=== PATIENT | male | born 1970 | race Caucasian/White ===

== ENCOUNTER 2018-05-16 17:13 | Emergency (ER) | payer BC, SELFPAY ==
[2018-05-16 17:19] VITALS: BP 159/97; PULSE 86; RESP 18; TEMP 36.4; O2SAT 97
--- NOTE | 2018-05-16 17:45 | W.ED.GENAD ---
Discharge Plan Disposition Patient Disposition: HOME Condition: Fair Discharge Details Chief Complaint: Laceration Clinical Impression: Crush injury to finger, Laceration of finger Primary Care Provider: New Lin ED Provider: Sfoiya Carrington Home Meds and New Rx's Prescriptions: New cephalexin [Keflex] 500 mg capsule 500 mg PO BID Qty: 10 RF: 0 Continue sertraline 25 MG tablet 25 mg PO DAILY Qty: 30 RF: 3 zolpidem 10 MG tablet 10 mg PO HS PRN PRN5 Days Qty: 5 RF: 0 Discharge Instructions Instructions: Finger Laceration (ED) Additional Instructions: I am concerned that you have have an open fracture that would need to be managed by orthopedics and has a risk of infection. You are currently refusing x-ray of the finger. Will place you on antibiotics prophylactically in the event you have a fracture that is unknown. Encourage rest, ice, elevation. Tylenol and/or Ibuprofen as needed for discomfort. Keep wound clean/dry/covered. Keep splint on while pain persists. You should follow up [facility] primary care for xray as was advised today. Tetanus was updated today. Referrals: New Lin, [Primary Care Provider] - Discharge Data Discharge Date/Time-TO BE ENTERED AT DEPARTURE: 05/16/18 18:30 Medical Decision Making Patient is a 47 year old male with c/c of left small digit crush injury. Was working to unhitch a load that was underpressure on a tractor when a pipe kicked back and struck his finger. He has a laceration over the DIP joint, appears superficial and irregularly shaped with a central flap. this is fairly well adhered down, will soak this to be abl eto better evaluate. He need tetanus, will update this today. I am concerned for possible fx given mechanism and discomfort with flexion. Will obtain xr. Patient has sensation intact, good extension against resistence. He cleansed the wound prior to arrival. Patient refused XR, initially was in agreement but feels that this is unnecessary as it is broken. I advised that in order to best treat him he would need imaging but he refuses. Also discussed that, as there is no indication for deformity at this time, I was not sure that there was indeed a fracture. We discussed that if there was infact an open fracture he would need abx and that placing him on these without appropriate indication could put him at risk of side effects or adverse reaction unnecessarily. He continues to decline and prefers to treat as if broken. When I was going to evaluate the wound further, saira had removed the remaining flap of tissue. My plan had been to mobilize this to be able to further evaluate the wound, cleanse the wound and then replace as biologic dressing. There is one area of deeper penetration just proximal to the DIP joint. This is 3mm in length, surrounding tissue is avulsed. Does not appear to require closure. Nursing staff will cleanse the wound and place a nonadhesive dressing. As we are unable to arrange for follow up as patient is refusing further care, I have asked the patient to sign out AMA. I will treat with abx prophylactically as I remain concerned for this possibly being an open fracture. Patient and I discussed this at length. He will keep current bulky dressing on for the next 48 hours. Patient was discharge d with a foam and metal splint which he will apply after removal of current dressing. He was given strict return precautions, in particular, we discussed sxs of infection. I advised he may return at any time to have imaging completed. Advised prompt f/u with PCP. Tetanus was updated today. All of his questions and concerns were addressed. Patient left AMA. HPI General Mode of arrival: ambulatory. Date/Time Provider Initiated Documentation: 05/16/18 17:38. Limitations to Documentation: no limitations. Information obtained by: patient. History of Present Illness 47 year old M presents to the emergency department with the chief complaint of left small finger crush injury, described as moderate, Quality is described as aching, and is localized to the left and upper extremity. Patient reports no radiation. Patient started experiencing this hour(s) and it has been constant. Immobilization improves symptom(s), Movement worsens symptoms . Patient notes no other symptoms.. Patient did receive the following treatments prior to arrival, none Related Data Home Medications Medication Instructions Recorded Confirmed sertraline 25 mg PO DAILY #30 tab-cap 10/11/17 zolpidem 10 mg PO HS PRN PRN 5 Days #5 tab 10/11/17 cephalexin [Keflex] 500 mg PO BID #10 cap 05/16/18 Previous Rx's Medication Instructions Recorded sertraline 25 mg PO DAILY #30 tab-cap 10/11/17 cephalexin [Keflex] 500 mg PO BID #10 cap 05/16/18 Allergies Allergy/AdvReac Type Severity Reaction Status Date / Time No Known Allergies Allergy Unverified 05/16/18 17:21 General Stated Complaint: Laceration SAUL: 4 Review of Systems Constitutional Reports as per HPI and Denies headache(s) ENT Denies headache(s) Cardiovascular Reports as per HPI Respiratory Reports as per HPI and Denies cough Musculoskeletal Reports as per HPI, Denies numbness and Denies tingling Integumentary/Breasts Reports as per HPI and Reports wounds Neurologic Reports as per HPI, Denies headache(s), Denies numbness and Denies tingling [facility] Social History Smoking/Tobacco Use Status: Never Surgical History Appendectomy (~05/1996) Exam Const General: cooperative, healthy appearing, comfortable, no acute distress, well developed and well groomed Nutritional Appearance: average body habitus and well nourished Orientation: alert and awake Resp Effort & Inspection: normal respiratory effort, able to speak in complete sentences and no respiratory distress Cardio Rate: regular rate Rhythm: regular rhythm Skin Trauma: abrasion (patient has a skin tear to the dorsal aspect of the 5th digit right hand. Appears to have a central flap with skin still attached to the radial side of the digit 2cmx0.5cm in size. No active bleeding) Neuro General: alert and awake Cognition: normal cognition Speech: speech normal Gait: normal gait Motor: muscle tone normal throughout Sensory Exam: no sensory deficits noted (2 point intact) Extrem General: abnormal to inspection (abrasion as above), abnormal ROM (full extension, able to extend and flex against resistance at the DIP and PIP joint. Patient unable to completely flex, this may be associated with swelling), normal capillary refill and no joint enlargement noted (swelling of the middle phalanx) Psych Appearance: grossly normal and well kempt Mental Status: mental status grossly normal Speech and Movement: speech and movement normal Course Vital Signs Temperature 36.4 C L 05/16/18 17:19 Pulse 86 05/16/18 17:19 Respiratory Rate 18 05/16/18 17:19 Blood Pressure 159/97 H 05/16/18 17:19 Pulse Oximetry 97 05/16/18 17:19 Temperature 36.4 C L 05/16/18 17:19 Temperature Source Skin 05/16/18 17:19 Pulse 86 05/16/18 17:19 Respiratory Rate 18 05/16/18 17:19 Respiratory Effort 05/16/18 17:21 Blood Pressure 159/97 H 05/16/18 17:19 Blood Pressure Position Sitting 05/16/18 17:19 Pulse Oximetry 97 05/16/18 17:19 Oxygen Delivery Method Room Air 05/16/18 17:19 Oxygen Flow Rate 0 05/16/18 17:19
--- NOTE | 2018-05-16 17:49 | ED.GENADUL_ITS ---
Discharge Plan Disposition Patient Disposition: HOME Condition: Fair Discharge Details Chief Complaint: Laceration Clinical Impression: Crush injury to finger, Laceration of finger Primary Care Provider: New Lin ED Provider: Sofiya Carrington Home Meds and New Rx's Prescriptions: New cephalexin [Keflex] 500 mg capsule 500 mg PO BID Qty: 10 RF: 0 Continue sertraline 25 MG tablet 25 mg PO DAILY Qty: 30 RF: 3 zolpidem 10 MG tablet 10 mg PO HS PRN PRN5 Days Qty: 5 RF: 0 Discharge Instructions Instructions: Finger Laceration (ED) Additional Instructions: I am concerned that you have have an open fracture that would need to be managed by orthopedics and has a risk of infection. You are currently refusing x-ray of the finger. Will place you on antibiotics prophylactically in the event you have a fracture that is unknown. Encourage rest, ice, elevation. Tylenol and/or Ibuprofen as needed for discomfort. Keep wound clean/dry/ covered. Keep splint on while pain persists. You should follow up [facility] primary care for xray as was advised today. Tetanus was updated today. Referrals: New Lin, [Primary Care Provider] - Discharge Data Discharge Date/Time-TO BE ENTERED AT DEPARTURE: 05/16/18 18:30 Medical Decision Making Patient is a 47 year old male with c/c of left small digit crush injury. Was working to unhitch a load that was underpressure on a tractor when a pipe kicked back and struck his finger. He has a laceration over the DIP joint, appears superficial and irregularly shaped with a central flap. this is fairly well adhered down, will soak this to be abl eto better evaluate. He need tetanus , will update this today. I am concerned for possible fx given mechanism and discomfort with flexion. Will obtain xr. Patient has sensation intact, good extension against resistence. He cleansed the wound prior to arrival. Patient refused XR, initially was in agreement but feels that this is unnecessary as it is broken. I advised that in order to best treat him he would need imaging but he refuses. Also discussed that, as there is no indication for deformity at this time, I was not sure that there was indeed a fracture. We discussed that if there was infact an open fracture he would need abx and that placing him on these without appropriate indication could put him at risk of side effects or adverse reaction unnecessarily. He continues to decline and prefers to treat as if broken. When I was going to evaluate the wound further, saira had removed the remaining flap of tissue. My plan had been to mobilize this to be able to further evaluate the wound, cleanse the wound and then replace as biologic dressing. There is one area of deeper penetration just proximal to the DIP joint. This is 3mm in length, surrounding tissue is avulsed. Does not appear to require closure. Nursing staff will cleanse the wound and place a nonadhesive dressing. As we are unable to arrange for follow up as patient is refusing further care, I have asked the patient to sign out AMA. I will treat with abx prophylactically as I remain concerned for this possibly being an open fracture. Patient and I discussed this at length. He will keep current bulky dressing on for the next 48 hours. Patient was discharge d with a foam and metal splint which he will apply after removal of current dressing. He was given strict return precautions, in particular, we discussed sxs of infection. I advised he may return at any time to have imaging completed. Advised prompt f/u with PCP. Tetanus was updated today. All of his questions and concerns were addressed. Patient left AMA. HPI General Mode of arrival: ambulatory . Date/Time Provider Initiated Documentation: 05/16/18 17:38 . Limitations to Documentation: no limitations . Information obtained by: patient . History of Present Illness 47 year old M presents to the emergency department with the chief complaint of left small finger crush injury, described as moderate, Quality is described as aching, and is localized to the left and upper extremity. Patient reports no radiation. Patient started experiencing this hour(s) and it has been constant. Immobilization improves symptom(s), Movement worsens symptoms . Patient notes no other symptoms.. Patient did receive the following treatments prior to arrival, none Related Data Home Medications Medication Instructions Recorded Confirmed sertraline 25 mg PO DAILY #30 tab-cap 10/11/17 zolpidem 10 mg PO HS PRN PRN 5 Days #5 tab 10/11/17 cephalexin [Keflex] 500 mg PO BID #10 cap 05/16/18 Previous Rx's Medication Instructions Recorded sertraline 25 mg PO DAILY #30 tab-cap 10/11/17 cephalexin [Keflex] 500 mg PO BID #10 cap 05/16/18 Allergies Allergy/AdvReac Type Severity Reaction Status Date / Time No Known Allergies Allergy Unverified 05/16/18 17:21 General Stated Complaint: Laceration SAUL: 4 Review of Systems Constitutional Reports as per HPI and Denies headache(s) ENT Denies headache(s) Cardiovascular Reports as per HPI Respiratory Reports as per HPI and Denies cough Musculoskeletal Reports as per HPI, Denies numbness and Denies tingling Integumentary/Breasts Reports as per HPI and Reports wounds Neurologic Reports as per HPI, Denies headache(s), Denies numbness and Denies tingling [facility] Social History Smoking/Tobacco Use Status: Never Surgical History Appendectomy (~05/1996) Exam Const General: cooperative, healthy appearing, comfortable, no acute distress, well developed and well groomed Nutritional Appearance: average body habitus and well nourished Orientation: alert and awake Resp Effort & Inspection: normal respiratory effort, able to speak in complete sentences and no respiratory distress Cardio Rate: regular rate Rhythm: regular rhythm Skin Trauma: abrasion (patient has a skin tear to the dorsal aspect of the 5th digit right hand. Appears to have a central flap with skin still attached to the radial side of the digit 2cmx0.5cm in size. No active bleeding) Neuro General: alert and awake Cognition: normal cognition Speech: speech normal Gait: normal gait Motor: muscle tone normal throughout Sensory Exam: no sensory deficits noted (2 point intact) Extrem General: abnormal to inspection (abrasion as above), abnormal ROM (full extension, able to extend and flex against resistance at the DIP and PIP joint. Patient unable to completely flex, this may be associated with swelling), normal capillary refill and no joint enlargement noted (swelling of the middle phalanx) Psych Appearance: grossly normal and well kempt Mental Status: mental status grossly normal Speech and Movement: speech and movement normal Course Vital Signs Temperature 36.4 C L 05/16/18 17:19 Pulse 86 05/16/18 17:19 Respiratory Rate 18 05/16/18 17:19 Blood Pressure 159/97 H 05/16/18 17:19 Pulse Oximetry 97 05/16/18 17:19 Temperature 36.4 C L 05/16/18 17:19 Temperature Source Skin 05/16/18 17:19 Pulse 86 05/16/18 17:19 Respiratory Rate 18 05/16/18 17:19 Respiratory Effort 05/16/18 17:21 Blood Pressure 159/97 H 05/16/18 17:19 Blood Pressure Position Sitting 05/16/18 17:19 Pulse Oximetry 97 05/16/18 17:19 Oxygen Delivery Method Room Air 05/16/18 17:19 Oxygen Flow Rate 0 05/16/18 17:19
[2018-05-16 18:30] VITALS: BP 159/97; PULSE 86; RESP 18; TEMP 36.4; O2SAT 97
== END 2018-05-16 18:30 | disposition home or self-care (01) ==
PROVIDERS: Emergency Provider Physician Assistant; PCP Emergency Medicine
DX: S67.197A Crushing injury of left little finger, initial encounter (principal); S61.217A Laceration without foreign body of left little finger without damage to nail, initial encounter; W29.8XXA Contact with other powered hand tools and household machinery, initial encounter; Z53.29 Procedure and treatment not carried out because of patient's decision for other reasons
CPT/HCPCS: 90471; 99284; 99282

== ENCOUNTER 2021-05-14 13:17 | Outpatient (REF) | payer SELFPAY ==
[2021-05-14 18:50] LABS: Abs Immature Grans 0.01 10^3/uL (0.0-0.06); Absolute Basophil Count 0.06 10^3/uL (0.0-0.2); Absolute Eosinophil Count 0.36 10^3/uL (0.0-0.7); Absolute Lymphocyte Count 1.34 10^3/uL (1.2-3.4); Absolute Monocyte Count 0.65 10^3/uL (0.1-0.8); Absolute Neutrophil Count 2.29 10^3/uL (1.2-6.7); Basophils % 1.3; Eosinophils % 7.6; HCT 43.9 % (40.0-50.0); HGB 15.3 g/dL (13.5-17.5); Immature Grans % 0.2; Lymphocytes % 28.5; MCH 34.5 pg (27.0-33.0); MCHC 34.9 % (32.0-36.0); MCV 98.9 fL (80-95); MPV 10.5 fL (8.0-11.0); Monocytes % 13.8; Neutrophils % 48.6; Nucleated RBC 0 %; Platelet Count 200 10^3/uL (130-400); RBC 4.44 10^6/uL (4.36-5.78); RDW 12.6 % (11.8-14.1); RDW-SD 45.7 fL; WBC 4.71 10^3/uL (4.4-10.8)
[2021-05-14 18:56] LABS: ESR 7 mm/hr (0-15)
[2021-05-14 19:27] LABS: ALT 113 U/L (16-63); AST 65 U/L (15-37); Albumin 4.4 g/dL (3.4-5.0); Alkaline Phosphatase 75 U/L (46-116); Anion Gap 10.7 mmol/L (3-11); BUN 16 mg/dL (7-18); Bilirubin, Total 0.8 mg/dL (0.2-1.0); CO2 26.3 mmol/L (21.0-32.0); CREATININE 1.2 mg/dL (0.70-1.30); Calcium 8.9 mg/dL (8.5-10.1); Chloride 108 mmol/L (98-107); Glucose 92 mg/dL (74-106); Lipase 104 U/L (73-393); Potassium 4.2 mmol/L (3.5-5.1); Sodium 145 mmol/L (136-145); Total Protein 7.3 g/dL (6.4-8.2)
== END 2021-05-14 13:18 | disposition home or self-care (01) ==
LOC: LBN 13:17
PROVIDERS: PCP Emergency Medicine; Visit Provider Family Medicine
DX: I10 Essential (primary) hypertension (principal); R10.84 Generalized abdominal pain; K21.9 Gastro-esophageal reflux disease without esophagitis; Z13.6 Encounter for screening for cardiovascular disorders; Z11.59 Encounter for screening for other viral diseases
CPT/HCPCS: 80053; 83690; 85652; 85025; 86140

== ENCOUNTER 2021-09-01 12:07 | Outpatient (REF) | payer BC, SELFPAY ==
[2021-09-01 12:17] LABS: Abs Immature Grans 0.02 10^3/uL (0.0-0.06); Absolute Basophil Count 0.05 10^3/uL (0.0-0.2); Absolute Eosinophil Count 0.46 10^3/uL (0.0-0.7); Absolute Monocyte Count 0.51 10^3/uL (0.1-0.8); Absolute Neutrophil Count 2.21 10^3/uL (1.2-6.7); Basophils % 1.1; Eosinophils % 10.1; HCT 44.4 % (40.0-50.0); HGB 15.6 g/dL (13.5-17.5); Immature Grans % 0.4; Lymphocytes % 28.6; MCH 34.2 pg (27.0-33.0); MCHC 35.1 % (32.0-36.0); MCV 97.4 fL (80-95); MPV 9.9 fL (8.0-11.0); Monocytes % 11.2; Neutrophils % 48.6; Nucleated RBC 0 %; Platelet Count 195 10^3/uL (130-400); RBC 4.56 10^6/uL (4.36-5.78); RDW 12.5 % (11.8-14.1); RDW-SD 44.8 fL; WBC 4.55 10^3/uL (4.4-10.8)
[2021-09-01 12:39] LABS: ALT 122 U/L (16-63); AST 40 U/L (15-37); Albumin 4.2 g/dL (3.4-5.0); Alkaline Phosphatase 73 U/L (46-116); Anion Gap 11.8 mmol/L (3-11); BUN 17 mg/dL (7-18); Bilirubin, Total 0.7 mg/dL (0.2-1.0); CO2 25.2 mmol/L (21.0-32.0); Calcium 11.4 mg/dL (8.5-10.1); Chloride 103 mmol/L (98-107); GGT 87 U/L (15-85); Glucose 115 mg/dL (74-106); Potassium 3.9 mmol/L (3.5-5.1); Sodium 140 mmol/L (136-145); Total Protein 7.7 g/dL (6.4-8.2)
[2021-09-01 12:50] LABS: Calculated LDL 179 mg/dL (<100); Cholesterol 284 mg/dL (<200); HDL Cholesterol 80 mg/dL (40-60); Triglyceride 129 mg/dL (<150)
[2021-09-01 21:51] LABS: CRP, High Sensitivity 2.11 mg/L (See Note)
== END 2021-09-01 12:08 | disposition home or self-care (01) ==
LOC: LBN 12:07
PROVIDERS: PCP Family Medicine; Visit Provider Surgery
DX: K21.9 Gastro-esophageal reflux disease without esophagitis (principal); K57.30 Diverticulosis of large intestine without perforation or abscess without bleeding; K76.0 Fatty (change of) liver, not elsewhere classified; K80.20 Calculus of gallbladder without cholecystitis without obstruction; R10.9 Unspecified abdominal pain; Z80.0 Family history of malignant neoplasm of digestive organs; Z87.898 Personal history of other specified conditions; Z82.49 Family history of ischemic heart disease and other diseases of the circulatory system
CPT/HCPCS: 80053; 80061; 86141; 82977; 85025

== ENCOUNTER 2021-09-08 01:15 | Outpatient (CLI) | payer BC, SELFPAY ==
[2021-09-08 12:24] LABS: Source Nasal/Nares
[2021-09-08 18:06] LABS: COVID-19 PCR Negative (Negative)
== END 2021-09-08 01:16 | disposition home or self-care (01) ==
LOC: LBO 01:15
PROVIDERS: PCP Family Medicine; Visit Provider Surgery
DX: Z20.822 Contact with and (suspected) exposure to COVID-19 (principal); Z01.818 Encounter for other preprocedural examination
CPT/HCPCS: 87635

== ENCOUNTER 2021-09-09 10:50 | Day surgery (SDC) | payer BC, SELFPAY ==
--- NOTE | 2021-09-08 20:07 | W.PM.DSUDISC ---
Discharge Plan Disposition Patient Disposition: HOME Condition: Good Discharge Details Reason For Visit: GB removal Attending Provider: Sandy Hernandez Primary Care Provider: Braxton Platt Home Meds and New Rx's Prescriptions: New tramadol [Ultram] 50 mg tablet 50 mg PO Q6H PRNQty: 7 0RF ondansetron 4 mg tablet,disintegrating 4 mg PO Q6H PRN (Reason: nausea and vomiting) Qty: 4 0RF Continued omeprazole 20 mg capsule,delayed release(DR/EC) 20 mg PO DAILY Qty: 30 0RF Discharge Instructions Additional Instructions: Care after Gallbladder Surgery ? ? -Pain control: ?For the first 72 hours after surgery, take you pain meds continuously and not just when you have pain.?? Alternate Tylenol 1000mg by mouth every 8 hours, and Ibuprofen 600mg every 6 hours.? Make sure you take ibuprofen with food and not on an empty stomach.? ??Use the tramadol for breakthrough pain- pain that is greater than a 7. ?- Use ICE! Ice really helps to keep the swelling down, and swelling causes pain. ??Twenty minutes on, and then off, continuously for the first 72hours.? After the first 72hrs, you can just use the Tylenol, ibuprofen or Celebrex, and ice, ?when you have pain.?? If you are taking narcotic pain medication, follow the instructions on the label and do not drive. Pain medications can make you very constipated. Make sure you are moving your bowels daily. If not, take Miralax, milk of magnesia or magnesium citrate.? - Anesthesia makes you very constipated.? Take a dose of milk of magnesia the morning after surgery. ? Use an ice bag for the first 72 hours. This helps to decrease swelling, which causes pain. It is normal to be more sore/painful and swollen towards the end of the day and first thing in the morning. ? ? Gallbladder surgery can make you very nauseated; use Zofran for nausea, for the first 24 hours. The nausea generally stops after 24 hours. ? ? Use milk of magnesia or prune juice to prevent constipation (this is a particular side effect of pain medication and anesthesia). Do not allow yourself to become constipated. ? ? Avoid fatty or greasy foods; introduce these slowly, with care, after about 1 month. ? High-fat foods include: ? Foods that are fried, like [place]zbek fries and potato chips ? High-fat meats, such as mustafa, bologna, sausage, ground beef, and ribs, pork products ? High-fat dairy products, such as cheese, ice cream, cream, whole milk, and sour cream ? Pizza ? Foods made with lard or butter ? Creamy soups or sauces ? Meat gravies ? Chocolate ? Oils, such as palm and coconut oil ? Skin of chicken or turkey ? Nuts and nut butters ? Avacadoes ? Start out eating very small, bland amounts of food. Do not take pain pills on an empty stomach. ? - You will notice purple discoloration around the incisions.? This is the ?skin glue?.? This will wear off on its own.? It is OK to shower after 24hrs.? You do not need to cover the incisions. ? ?? - -You should walk frequently, gradually, increasing the distance. You may climb stairs, just go slowly. ? ? ? Do not go swimming or sit in a hot tub for two weeks. ? There are no stitches to remove. ? ? Do not drive your car x72hrs and then only if you have no pain and can move freely. Do not drive if you are taking pain narcotic pain medications. ? ? You may resume sexual activity whenever pain and soreness subside, usually in 2 weeks. ? ? Do no lift anything over 5 lbs. for two weeks. ? ? You may return to work in one week, or when you feel able, provided you do not have to do any heavy lifting or prolonged standing. ? ? You should return to Dr. Hernandez?s office for a post-op appointment September 25. [facility] Surgical Clinic: [phone]. ? My Medications for pain and nausea are: ibuprofen/tylenol ?and ultram, ?and zofran ? ? When to Call the Office: ? If the incision becomes red or swollen, or there is more than a little drainage from it. ? If you develop a temperature higher than 100.5 F. ? If your eyes turn yellow ? Vomiting and can?t keep fluids down ? Activity:: see above Remove Dressings/Wound Care:: 24 hours Diet:: low fat Discharge Orders Discharge Orders: Discharge Order (Routine); Ordered 09/08/21 Ordered By: Sandy Hernandez
--- NOTE | 2021-09-08 20:10 | ROE_ITS ---
Date of service: 09/09/21 Time of Service: 13:08 Operative Note Operative Note DATE OF PROCEDURE: 09/09/21 PRE-OP DIAGNOSIS: gallstones POST-OP DIAGNOSIS: other (umbilical hernia reapir) PROCEDURE: lap grey and incidental umbilical hernia repair SURGEON: David Lucio BENCH WORKER HOLLOW HANDLE: Regine Balderas ANESTHESIA TYPE: Local By Surgeon and General LMA/ETT Refer to Anesthesia Record ESTIMATED BLOOD LOSS: 5 PATHOLOGY: none sent COMPLICATIONS: None Patient was transported to: PACU Patient's condition: stable Procedure Description: The pt is seen at the request of there PCP regarding acute on chronic cholecystitis, cholelithiasis. The pt has failed outpt conservative medical measures and is here today for laparoscopic cholecystectomy. Informed consent was obtained, explaining risks and benefits of the procedure including but not limited to bleeding, infection, pneumonia, blood clots, possible damage to bowel, bladder, blood vessels, bile ducts, possible open procedure, complications of general anesthesia and other unforetold complications. PROCEDURE: The patient agrees and is brought to the operative room suite and placed in supine position. Anesthesia was administered per the Department of Anesthesia. The patient did receive IV antibiotics. NG tube and Lau catheter are placed. The patient was prepped and draped in the usual sterile fashion using DuraPrep scrub solution. Pause for the cause was done. 20 mL of 1% buffered lidocaine was used for local anesthetization. A stab incision was made in the umbilicus and the Verres inserted. Drop test was positive and insufflation was begun. When 15 mm of pressure was noted on the monitor, the Veress was removed and #5 port inserted. The camera was inserted through the port and shows no damage to underlying structures. A 10 mm port was then placed in the epigastric position under direct visualization following creation of local field blocks as well as two 5 mm ports in the right upper quadrant. The gallbladder fundus was grasped and retracted towards the right shoulder. Infundibulum was grasped and retracted laterally. The hepat-duodenal ligament is entered. The cystic duct and artery are dissected out and the most inferior portion of the gallbladder plate is removed from the liver and the critical view of safety was obtained after elli aring away all fatty material. Endo Clips were placed across the duct and artery and these structures are divided. The remainder of the gallbladder was excised from the liver bed. The gallbladder was placed in a bag and brought out. Examination of the gallbladder shows indeed the cystic duct and artery to have been divided. The remainder of the abdomen was copiously irrigated with a liter of saline. All saline is removed. There is no bleeding or bile leakage from the liver bed or the clips sites. An EndoClose needle was used to close the 10 mm port site with an 0 Vicryl. All ports and instruments are removed. SPonge and needle counts are correct. Pneumoperitoneum is evacuated and the port sites are monitored to make sure there is no bleeding at the time of desufflation. The epigastric port site is instilled w/ 10cc Experel at the time of closure. Umbilical hernia is dissected the umbilicus. It was closed with 2 stitches 0 Vicryl. Port sites are irrigated and the skin is closed with 4-0 Monocryl in a running subcuticular fashion. Skin glue sterile dressings are applied. The patient tolerated the procedure well without complications, transferred to the recovery room in stable condition. DAVID LUCIO, DO ?
[2021-09-09] VITALS (11 sets, daily range): BP systolic 96–125; BP diastolic 51–99; PULSE 56–72; RESP 13–18; TEMP 36.1–36.4; O2SAT 95–99; BMI 30.4
--- NOTE | 2021-09-09 07:58 | W.ANESPRE ---
General Info Date of Service Date Performed: 09/09/21 Height: 6 ft 2 in Weight: 107.728 kg Body Mass Index (BMI): 30.4 Surgical Procedure: Operation Date: 09/09/21 11:25 Proposed Procedure Side Surgeon p Cholecystectomy Laparoscopic poss. Open Sandy Hernandez, Meds Allergies and Home Medications Allergies Allergy/AdvReac Type Severity Reaction Status Date / Time cephalexin [From Keflex] AdvReac Severe bilateral Verified 09/09/21 11:06 hip pain Home Medication Medication Instructions Recorded omeprazole 20 mg capsule,delayed 20 mg PO DAILY #30 cap 05/14/21 release Current Visit Medications: Current Medications Generic Name Dose Route Start Last Admin Trade Name Freq PRN Reason Stop Dose Admin Acetaminophen 1,000 mg 09/09/21 06:00 Acetaminophen 500 Mg Tab PO 09/09/21 16:00 PREOP YUN Gabapentin 600 mg 09/09/21 06:00 Gabapentin 300 Mg Cap PO 09/09/21 16:00 PREOP YUN Ringer's Solution 1,000 mls @ 80 mls/hr 09/09/21 06:00 IV 10/08/21 23:59 INFUSION YUN Clindamycin Phosphate/Dextrose 600 mg in 50 mls @ 100 mls/hr 09/09/21 06:00 Cleocin In D5w IVPB 09/09/21 16:00 PREOP YUN Ondansetron HCl 4 mg/ Sodium 52 mls @ 200 mls/hr 09/08/21 20:05 Chloride IVPB Q6H PRN PRN IV Miscellaneous Supplies 1 each 09/09/21 06:00 Iv Access IV 10/08/21 23:59 DIRECTED YUN Morphine Sulfate 2 mg 09/08/21 20:05 Morphine 4 Mg/Ml Syr IVP Q1H PRN PRN Sodium Chloride 0 ml 09/09/21 06:00 Normal Saline Flush 10 Ml Syr IV 10/08/21 23:59 PRN PRN Sodium Chloride 0 ml 09/09/21 06:00 Normal Saline 10 Ml Vial IJ 10/08/21 23:59 DIRECTED PRN Sterile Water 0 ml 09/09/21 06:00 Water,Injection,Sterile 10 Ml Vial IJ 10/08/21 23:59 DIRECTED PRN Tramadol HCl 50 mg 09/08/21 20:05 Tramadol 50 Mg Tab PO Q6H PRN PRN Pain PFSH Active Problems Active Problems: Problem Status Onset Code Dysthymia 10/29/17 F34.1 PTSD (post-traumatic stress disorder) F43.10 History of heavy alcohol consumption Z87.898 Family hx of colon cancer requiring screening colonoscopy Z80.0 Eczema L30.9 GERD (gastroesophageal reflux disease) K21.9 Abdominal pain R10.9 Gallstones without obstruction of gallbladder K80.20 Diverticula of colon K57.30 Fatty liver K76.0 Family history of heart disease Z82.49 HTN (hypertension) I10 Surgical History Surgical History Appendectomy (~05/1996) S/P correction of deviated nasal septum 2019 Tobacco Smoking/Tobacco Use Status: Never Alcohol Alcohol Intake: former Substance Use Substance use: Never Substance use type: does not use Vital Signs and Lab Results Vital Signs Most Recent Vital Signs in EMR: Temp Pulse Resp BP Pulse Ox 36.1 C L 72 16 125/99 H 98 09/09/21 11:07 09/09/21 11:07 09/09/21 11:07 09/09/21 11:07 09/09/21 11:07 Lab Results Blood Type / Crossmatch: No Data to Display Complete Blood Count: White Blood Count 4.55 10^3/uL (4.4-10.8) 09/01/21 11:20 09/01/21 Red Blood Count 4.56 10^6/uL (4.36-5.78) 09/01/21 11:20 09/01/21 Hemoglobin 15.6 g/dL (13.5-17.5) 09/01/21 11:20 09/01/21 Hematocrit 44.4 % (40.0-50.0) 09/01/21 11:20 09/01/21 Platelet Count 195 10^3/uL (130-400) 09/01/21 11:20 09/01/21 Complete Metabolic Panel: Sodium Level 140 mmol/L (136-145) 09/01/21 11:20 09/01/21 Potassium Level 3.9 mmol/L (3.5-5.1) 09/01/21 11:20 09/01/21 Chloride Level 103 mmol/L (98-107) 09/01/21 11:20 09/01/21 Carbon Dioxide Level 25.2 mmol/L (21.0-32.0) 09/01/21 11:20 09/01/21 Blood Urea Nitrogen 17 mg/dL (7-18) 09/01/21 11:20 09/01/21 Creatinine 1.0 mg/dL (0.70-1.30) 09/01/21 11:20 09/01/21 Estimated GFR/1.73 m2 >= 60.00 (mL/min/1.73m2) 09/01/21 11:20 09/01/21 Calcium Level 11.4 mg/dL (8.5-10.1) H 09/01/21 11:20 09/01/21 Albumin 4.2 g/dL (3.4-5.0) 09/01/21 11:20 09/01/21 Glucose Level 115 mg/dL (74-106) H 09/01/21 11:20 09/01/21 Liver Function Panel: Alanine Aminotransferase (ALT/SGPT) 122 U/L (16-63) H 09/01/21 11:20 09/01/21 Aspartate Amino Transf (AST/SGOT) 40 U/L (15-37) H 09/01/21 11:20 09/01/21 Gamma Glutamyl Transpeptidase 87 U/L (15-85) H 09/01/21 11:20 09/01/21 Coagulation Panel: No Data to Display Cardiac Panel: No Data to Display Arterial Blood Gas: No Data to Display Venous Blood Gas: No Data to Display Pancreas Panel: No Data to Display Thyroid Panel: No Data to Display Infectious Disease: Coronavirus (COVID-19)(PCR) Negative (Negative) 09/08/21 08:42 09/08/21 Coronavirus 2019 Source Nasal/Nares 09/08/21 08:42 09/08/21 Blood Cultures: No Data to Display Toxicology Panel: No Data to Display Imaging and Studies Imaging and Studies Study information below may be from another EMR and interpreted by another provider. Please see original notes in EMR for more complete details. Stress Test Summary: 2018: normal perfusion. LVEF 47% after stress. Anesthesia Assessment and Plan Anesthesia History Personal History: No History of Anesthesia Complications Family History: No Family History of Anesthesia Complications Exercise Tolerance Exercise Tolerance: Metabolic Equivalents>4 Cardiac & Pulmonary Exam Cardiac Exam: Normal S1/S2 Heart Sounds Pulmonary Exam: Clear Bilateral Breath Sounds Implantable Cardiac Device Does patient have a Pacemaker or an ICD?: No Airway Exam Known Difficult Airway: No Mallampati Class: 1 Mouth Opening: Normal (> 3cm) Thyromental Distance: Greater than 3 cm Neck Range of Motion: Full ROM Neck Circumference: Normal Teeth Condition: Normal Dentition ASA Classification ASA Score: ASA 2 Emergency Case?: No NPO Status NPO Status: NPO Clears >2 hours, Solids >8 hours Anesthesia Plan Resuscitation Status: Full Code Anesthesia Technique: General Anesthesia Airway Planned: Endotracheal Tube Monitors Used: Standard Monitors Preoperative Comments:: 50 yo male for lap grey Sig PMHX: PTSD, GERD (omeprazole), HTN, fatty liver, s/p deviated septum repair, never smoker. Previous Anes: AirQ 4.5, easy mask, does have a numb spot on the top of his mouth after.
[2021-09-09] MEDS: Lactated Ringers 1,000 ML 80 ML IV (11:28)
[2021-09-09] MEDS: Gabapentin 300 MG CAP 600 MG PO (11:29)
[2021-09-09] MEDS: Acetaminophen 500 MG TAB 1000 MG PO (11:29)
--- NOTE | 2021-09-09 12:39 | GB_PTH ---
PATIENT: Brian Soto LOC: [facility] U#:[id number] AGE/SX: 50/M ROOM: RE09/09/[address]: Sandy Hernandez : 1970 BED: DIS: 09/09/2021 SPEC #: [id number] RECD: 09/09/21 17:50 STATUS: DEEDEE RE #: [id number] AIDAN: 09/09/21 12:[address]: Sandy Hernandez DEPT: Surgical Specimen RECD BY: Radha Kelley ENTERED: 09/09/21 17:51 SP TYPE: GB OTHR DR: Braxton Platt Tissues: 1 - GALLBLADDER Procedures: GROSS AND MICRO LEVEL 3 Comments: [id number]
[2021-09-09] MEDS: Bupivacaine 0.5% Pres-Free 30 ML VIAL (12:53)
--- NOTE | 2021-09-09 13:53 | W.ANESPOSTOP ---
Postoperative Evaluation Date, Time and Location Date Performed: 09/09/21 Time Performed: 13:53 Patient Location: PACU Vital Signs Most Recent Imported Vital Signs: Most Recent Vital Signs Temp Pulse Resp BP Pulse Ox 36.3 C L 60 17 96/72 L 97 09/09/21 13:47 09/09/21 13:47 09/09/21 13:47 09/09/21 13:47 09/09/21 13:47 Pain Score Most Recent Pain Score: Most Recent Pain Score Pain Level 0 09/09/21 13:47 Assessment Mental Status: Awake (Alert & Oriented to Patient Baseline) Airway and Respiratory Function: Patent airway with normal (patient baseline) respiratory exam Cardiovascular Function: Hemodynamically Stable Hydration Status: Adequately Hydrated Nausea & Vomiting: No Nausea or Vomiting Pain: Pain is tolerable per patient Peripheral Nerve Block: Patient did not receive a nerve block
== END 2021-09-09 10:51 | disposition home or self-care (01) ==
LOC: SUR 10:50
PROVIDERS: PCP Family Medicine; Visit Provider Surgery
PROC: 0FT44ZZ Resection of Gallbladder, Percutaneous Endoscopic Approach (ICD-10-PCS; CPT 47562; principal; 2021-09-09 11:15)
DX: K80.10 Calculus of gallbladder with chronic cholecystitis without obstruction (principal); K42.9 Umbilical hernia without obstruction or gangrene; I10 Essential (primary) hypertension; K76.0 Fatty (change of) liver, not elsewhere classified; K21.9 Gastro-esophageal reflux disease without esophagitis
CPT/HCPCS: 49652; 47562; 88304; J0690; J1100; J1885; J2001; J2370; J2405; J2704; J3475

== ENCOUNTER 2021-09-13 08:44 | Inpatient (IN) | payer BC, SELFPAY ==
[2021-09-13] VITALS (7 sets, daily range): BP systolic 130–149; BP diastolic 87–109; PULSE 70–93; RESP 16; TEMP 36.3–36.8; O2SAT 96–97
--- NOTE | 2021-09-13 09:00 | DI.CT_ITS ---
Exam(s) CT ABDOMEN PELVIS W EXAM: CT ABDOMEN PELVIS W CLINICAL HISTORY: post op day 5 five from lap grey, pain fever. TECHNIQUE: Imaging Protocol: Axial computed tomography images with coronal and sagittal reformatted images were created and reviewed CONTRAST MATERIAL: Intravenous: Omnipaque 100cc Oral: None COMPARISON: CT CT ABDOMEN PELVIS W from 07/14/2021 FINDINGS: VISUALIZED LUNG BASES: Increased dependent markings in both lung bases but no confluent infiltrates a nd there are no pleural effusions evident. ABDOMEN: When compared to the prior study of 07/04/2021 there has been interval cholecystectomy. There is louisa e mild streaking in the gallbladder fossa but no formed fluid collection.. There is, however, circum ferential edema of the duodenal C-loop with mild Yoko duodenal fat stranding. There is a independent air bubble medial to the medial wall of the duodenum. This is possibly penetrating ulcer or tiny di verticulum. LIVER: There are no focal hepatic lesions evident. No dilatation of intrahepatic ducts. GALLBLADDER/BILIARY: Surgically absent. CBD is not dilated. PANCREAS: No evidence of pancreatic mass nor dilatation of the pancreatic duct. SPLEEN: Spleen is not enlarged. No obvious intrasplenic lesions. Splenic and portal veins are paten t. ADRENALS: There are no significant adrenal masses. KIDNEYS:No cysts evident. No solid renal masses. No calculi nor hydronephrosis.. ABDOMINAL AORTA: Abdominal aorta is not enlarged. LYMPH NODES:There is no retroperitoneal nor paraaortic adenopathy. ABDOMINAL WALL: No evidence of significant anterior abdominal wall nor inguinal hernia. GI: The colon is collapsed. However, there is no evidence of small-bowel obstruction. PELVIS: GI: No evidence of appendicitis.There are sigmoid diverticuli but no evidence of acute diverticulitis . LYMPH NODES: There is no intrapelvic nor inguinal adenopathy. REPRODUCTIVE: Prostate gland not enlarged. Seminal vesicles unremarkable. URINARY BLADDER: No calculi nor obvious masses evident OSSEOUS: No significant osseous lesions. There is ankylosis of the sacroiliac joints. IMPRESSION: 1. Compared to CT scan of 07/14/2021 there has been interval cholecystectomy. There is mild streakin g the gallbladder fossa but no drainable fluid collection. 2. Duodenum is now diffusely edematous and exhibits some Yoko duodenal stranding. Small air bubble i s seen medial to the duodenum projected over the lower outer aspect of the pancreatic head adjacent t o the nondilated CBD this is unchanged from the prior CT scan and most probably is a small diverticul um (which is commonly found at this level). However, given the duo denied is findings, cannot comple tely exclude the fact that this may represent a penetrating ulcer. 3. There is ankylosis of the sacroiliac joints. This can be associated with inflammatory bowel disea se. However, be somewhat unlikely for Crohn's disease to be confined to the duodenum without other f indings more distally in the small bowel. 4. There is sigmoid diverticuli but no evidence of acute diverticulitis. RADIATION DOSE DELIVERED: 1,344.82mGy.cm Total DLP DATA REPOSITORY: All CT scans at this facility are submitted to the National Radiology Data Registry (NRDR) Dose Index Registry (DIR) with the [employer] [place] [employer] (ACR). RADIATION OPTIMIZATION: All CT scans at this facility use at least one of these dose optimization te chniques: automated exposure control; mA and/or kV adjustment per patient size (includes targeted exa ms where dose is matched to clinical indication); or iterative reconstruction.
--- NOTE | 2021-09-13 09:00 | RT.EKG_ITS ---
APPROVED REPORT Exam: Resting ECG Reason for Exam: abdominal pain, post op Patient Location: E HR:79 bpm ECG Measurements Heart Rate 79 AXIS IA 160 P 47 QRSd 95 QRS -9 QT 399 T -3 QTc 458 Conclusion Sinus rhythm...normal P axis, V-rate 60- 99 normal sinus rhythm, left axis, flattening T waves laterally, q waves inferior and septal
[2021-09-13] MEDS: Ondansetron 4 MG/2 ML VIAL IVP (09:21)
[2021-09-13] MEDS: Normal Saline 1,000 ML 1000 ML IV (09:22)
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
[2021-09-13 09:31] LABS: Abs Immature Grans 0.02 10^3/uL (0.0-0.06); Absolute Basophil Count 0.05 10^3/uL (0.0-0.2); Absolute Eosinophil Count 0.55 10^3/uL (0.0-0.7); Absolute Lymphocyte Count 1.26 10^3/uL (1.2-3.4); Absolute Monocyte Count 0.67 10^3/uL (0.1-0.8); Absolute Neutrophil Count 5.22 10^3/uL (1.2-6.7); Basophils % 0.6; Eosinophils % 7.1; HCT 43.3 % (40.0-50.0); HGB 15.1 g/dL (13.5-17.5); Immature Grans % 0.3; Lymphocytes % 16.2; MCH 33.9 pg (27.0-33.0); MCHC 34.9 % (32.0-36.0); MCV 97.3 fL (80-95); MPV 9.3 fL (8.0-11.0); Monocytes % 8.6; Neutrophils % 67.2; Nucleated RBC 0 %; Platelet Count 249 10^3/uL (130-400); RBC 4.45 10^6/uL (4.36-5.78); RDW 12.1 % (11.8-14.1); RDW-SD 43.7 fL; WBC 7.77 10^3/uL (4.4-10.8)
[2021-09-13 09:53] LABS: ALT 88 U/L (16-63); AST 21 U/L (15-37); Albumin 3.8 g/dL (3.4-5.0); Alkaline Phosphatase 79 U/L (46-116); Anion Gap 11.6 mmol/L (3-11); BUN 14 mg/dL (7-18); Bilirubin, Total 0.6 mg/dL (0.2-1.0); CO2 24.4 mmol/L (21.0-32.0); Calcium 8.2 mg/dL (8.5-10.1); Chloride 107 mmol/L (98-107); Glucose 128 mg/dL (74-106); Potassium 3.5 mmol/L (3.5-5.1); Sodium 143 mmol/L (136-145); Troponin I < 50 ng/L (<or=60)
[2021-09-13] MEDS: Omnipaque 350 MG/ML 100 ML BTL IJ (10:32)
--- NOTE | 2021-09-13 10:50 | DI.VRAD_ITS ---
PROCEDURE INFORMATION: Exam: CT Abdomen And Pelvis With Contrast Exam date and time: 09/13/2021 10:16 AM Age: 50 years old Clinical indication: Abdominal pain; Prior surgery; Surgery date: 3-7 days post-operative; Surgery type: Lap grey TECHNIQUE: Imaging protocol: Computed tomography of the abdomen and pelvis with contrast. COMPARISON: 1. CT ABDOMEN PELVIS W 07/14/2021 9:33 AM 2. US ABDOMEN LIMITED 09/04/2021 9:11 AM FINDINGS: Lungs: There are mild dependent hypoventilatory changes in both lower lobes. Lung bases are otherwise clear. No pleural effusions. Liver: The liver is diffusely diminished in attenuation, compatible with mild hepatic steatosis. No acute abnormality. Gallbladder and bile ducts: The gallbladder is surgically absent, which is a new finding since 09/04/2021. There is no fluid collection or other suspicious abnormality in the cholecystectomy bed. There is no intrahepatic or extrahepatic biliary ductal dilatation. Pancreas: Unremarkable. Spleen: Unremarkable. No splenomegaly. Adrenal glands: Unremarkable. No masses. Kidneys and ureters: There is normal and symmetric renal enhancement. There is no hydronephrosis or hydroureter. Stomach and bowel: The stomach is nondilated. The small and large bowel are normal in caliber. There is marked circumferential mural thickening and mucosal hyperenhancement in the 1st and 2nd portions of the duodenum with periduodenal fat stranding, findings most compatible with duodenitis. There is mild sigmoid diverticulosis without evidence of diverticulitis. Appendix: The appendix is not definitively identified, however there are no pericecal inflammatory changes to raise concern for acute appendicitis. Intraperitoneal space: There is a small amount of extraluminal free air in the central mesentery (series 4, images 58-65) and a small focus of gas medial to the 2nd portion of duodenum on coronal image 48. While a small amount of pneumoperitoneum is not unexpected in the setting of recent surgery, its location is not typical and given the adjacent inflammatory process in the duodenum, this is worrisome for bowel perforation, i.e. a perforated duodenal ulcer. There is trace right upper quadrant ascites. No discrete fluid collection is identified. Retroperitoneal space: Unremarkable. No retroperitoneal collection or mass. Vasculature: Unremarkable. The abdominal aorta is normal in caliber. Lymph nodes: There is a mildly enlarged portacaval lymph node measuring 1.4 cm in short axis, nonspecific, most likely reactive. There is a mildly prominent 0.9 cm distal paraesophageal lymph node, nonspecific. Urinary bladder: Unremarkable. Reproductive: Unremarkable. Normal size prostate gland. Bones/joints: Multilevel spondylosis in the lower thoracic and lumbar spine. Trace anterolisthesis of L5 on S1 secondary to chronic-appearing bilateral L5 pars interarticularis defects. Bilateral hip and sacroiliac osteoarthritis Soft tissues: Tiny fat containing left inguinal hernia. Small foci of subcutaneous fat stranding in the right upper quadrant ventral abdominal wall and in the periumbilical region, likely secondary to recent laparoscopic port placement. Other findings: None. IMPRESSION: 1. Findings consistent with duodenitis; see discussion above. There is mild pneumoperitoneum. Though pneumoperitoneum is not unexpected in the setting of recent laparoscopic surgery, there is a small focus of gas abutting the duodenum and a localized perforation (i.e., perforated duodenal ulcer) should be excluded. Upper GI series or upper endoscopy could be considered. 2. Postsurgical changes from recent cholecystectomy as described above, without suspicious abnormality in the gallbladder fossa. 3. Mild portacaval lymphadenopathy, nonspecific, most likely reactive. THIS REPORT CONTAINS FINDINGS THAT MAY BE CRITICAL TO PATIENT CARE. The findings were verbally communicated via telephone conference at 10:49 AM EDT on 09/13/[address] Chidi Bailey. The findings were acknowledged and understood. Dictated and Authenticated by: Yodit Delgadillo MD. Ordering:ROX Murillo MD
--- NOTE | 2021-09-13 11:15 | DI.CT_ITS ---
Exam(s) CT ABDOMEN PELVIS WO EXAM: CT ABDOMEN PELVIS WO CLINICAL HISTORY: post op day 5 lap grey, duodenitis, possible perf. TECHNIQUE: Imaging Protocol: Axial computed tomography images with coronal and sagittal reformatted images were created and reviewed CONTRAST MATERIAL: Intravenous: none Oral: None COMPARISON: CT CT ABDOMEN PELVIS W from 09/13/2021 FINDINGS: VISUALIZED LUNG BASES: Mild increased markings in the right lung base. No large infiltrate. No pleu ral effusions. ABDOMEN: There is no ascites. There is abnormal circumferential thickening of the duodenum and some Yoko duodenal streaking consist ent with inflammatory change-probable do OD nidus. This appears to be confined to the duodenum. An there is an air bubble medial to the duodenum difficult to determine extra luminal or related to a sm all diverticulum. Cannot exclude penetrating ulcer at this level. LIVER: There are no obvious focal hepatic lesions evident of this noninfused study. GALLBLADDER/BILIARY: Gallbladder surgically absent. CBD is not dilated. PANCREAS: Pancreas appears unremarkable with no evidence of acute pancreatitis. No pancreatic mass. No dilatation pancreatic duct. SPLEEN: Spleen is not enlarged. No obvious intrasplenic lesions. ADRENALS: There are no significant adrenal masses. KIDNEYS:No cysts evident. No solid renal masses. No calculi nor hydronephrosis. . ABDOMINAL AORTA: Abdominal aorta is not enlarged. LYMPH NODES: There is no retroperitoneal nor paraaortic adenopathy. ABDOMINAL WALL: No evidence of significant anterior abdominal wall nor inguinal hernia. GI: No evidence of bowel obstruction. PELVIS: LYMPH NODES: There is no intrapelvic nor inguinal adenopathy. GI: No evidence of appendicitis.Sigmoid diverticuli but no evidence of acute diverticulitis. URINARY BLADDER: No calculi nor obvious masses evident REPRODUCTIVE: Prostate and seminal vesicles unremarkable. OSSEOUS: No significant osseous lesions. Ankylosis of the sacroiliac joints noted. IMPRESSION: 1. There is circumferential edema of the duodenum with surrounding mild streaking consistent with duo denitis. Single adjacent medially located gas bubble noted which may be a penetrating ulcer or small duodenal diverticulum. Endoscopy is recommended. 2. Gallbladder is surgically absent. There is no fluid collection in the gallbladder fossa. Liver u nremarkable. 3. There is ankylosis of the SI joints. Although inflammatory bowel disease (such as Crohn's disease ) can affect the duodenum, to be somewhat unlikely to be confined to the duodenum without involving o ther bowel segments. The above findings appear to be confined to the duodenum. RADIATION DOSE DELIVERED: 1,128.41mGy.cm Total DLP DATA REPOSITORY: All CT scans at this facility are submitted to the National Radiology Data Registry (NRDR) Dose Index Registry (DIR) with the [employer] (ACR). RADIATION OPTIMIZATION: All CT scans at this facility use at least one of these dose optimization te chniques: automated exposure control; mA and/or kV adjustment per patient size (includes targeted exa ms where dose is matched to clinical indication); or iterative reconstruction.
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
[2021-09-13] MEDS: PIPERACILLIN/TAZO 4.5 GM in Normal Saline 100 ML IVPB (11:44)
[2021-09-13] MEDS: ACETAMINOPHEN 1,000 MG/100 ML BTL 400 MG IVPB ×2 (12:19→21:15)
[2021-09-13 12:52] LABS: Source Nasal/Nares
[2021-09-13] MEDS: Lactated Ringers 1,000 ML 100 ML IV (13:00)
[2021-09-13 13:33] LABS: COVID-19 PCR Negative (Negative)
--- NOTE | 2021-09-13 14:21 | DI.VRAD_ITS ---
PROCEDURE INFORMATION: Exam: CT Abdomen And Pelvis Without Contrast Exam date and time: 09/13/2021 1:32 PM Age: 50 years old Clinical indication: Abnormal findings; Abnormal radiologic finding of the abdomen; Radiologic exam and body structure: CT abd-pel; Prior surgery; Surgery date: 3-7 days post-operative; Patient HX: Lap grey TECHNIQUE: Imaging protocol: Computed tomography of the abdomen and pelvis without contrast. Other technique: GI contrast given. COMPARISON: CT ABDOMEN PELVIS W 09/13/2021 10:16 AM FINDINGS: Lungs: Mild right lower lobe atelectasis. Liver: Normal. No mass. Gallbladder and bile ducts: Status post cholecystectomy. Pancreas: Normal. No ductal dilation. Spleen: Normal. No splenomegaly. Adrenal glands: Normal. No mass. Kidneys and ureters: Contrast present in the renal collecting system. Stomach and bowel: There is fairly significant wall edema involving the 1st through 3rd portions of the duodenum. Persistent fat stranding is again noted. Appendix: Appendix well seen, within normal limits. Intraperitoneal space: Previously seen residual pneumoperitoneum in the left mid abdominal mesentery is not significantly changed. Vasculature: Unremarkable. No abdominal aortic aneurysm. Lymph nodes: Unremarkable. No enlarged lymph nodes. Urinary bladder: Unremarkable as visualized. Reproductive: Unremarkable as visualized. Bones/joints: Unremarkable. No acute fracture. Soft tissues: Unremarkable. IMPRESSION: 1. Persistent changes of severe duodenitis. 2. Residual pneumoperitoneum again noted within the left mid abdominal mesentery. Dictated and Authenticated by: Carolyn Paul MD. Ordering:ROX Murillo MD
[2021-09-13] MEDS: Sucralfate 1 GM TAB PO ×2 (14:50→21:15)
[2021-09-13] MEDS: Normal Saline 500 ML 30 ML IV (17:58)
[2021-09-13] MEDS: PIPERACILLIN/TAZO 3.375 GM in Normal Saline 50 ML IVPB (17:59)
[2021-09-13] MEDS: Pantoprazole 40 MG VIAL IVP (21:16)
[2021-09-13] MEDS: Normal Saline Flush 10 ML SYR IVP (21:17)
[2021-09-13] MEDS: traMADol 50 MG TAB PO (21:36)
[2021-09-14 00:11] VITALS: BP 133/84; PULSE 60; RESP 16; TEMP 37; O2SAT 95
[2021-09-14] MEDS: Lactated Ringers 1,000 ML 100 ML IV (01:46)
[2021-09-14] MEDS: Sucralfate 1 GM TAB PO ×2 (02:45→07:42)
[2021-09-14] MEDS: ACETAMINOPHEN 1,000 MG/100 ML BTL 400 MG IVPB ×2 (04:51→12:01)
[2021-09-14] MEDS: PIPERACILLIN/TAZO 3.375 GM in Normal Saline 50 ML IVPB ×3 (05:54→12:02)
[2021-09-14 07:23] LABS: Abs Immature Grans 0.02 10^3/uL (0.0-0.06); Absolute Basophil Count 0.05 10^3/uL (0.0-0.2); Absolute Eosinophil Count 0.71 10^3/uL (0.0-0.7); Absolute Lymphocyte Count 1.18 10^3/uL (1.2-3.4); Absolute Monocyte Count 0.48 10^3/uL (0.1-0.8); Absolute Neutrophil Count 3.08 10^3/uL (1.2-6.7); Basophils % 0.9; Eosinophils % 12.9; HCT 37.7 % (40.0-50.0); Immature Grans % 0.4; Lymphocytes % 21.4; MCH 33.5 pg (27.0-33.0); MCHC 34.5 % (32.0-36.0); MCV 97.2 fL (80-95); MPV 9.4 fL (8.0-11.0); Monocytes % 8.7; Neutrophils % 55.7; Nucleated RBC 0 %; Platelet Count 183 10^3/uL (130-400); RBC 3.88 10^6/uL (4.36-5.78); RDW 11.9 % (11.8-14.1); RDW-SD 43.1 fL; WBC 5.52 10^3/uL (4.4-10.8)
[2021-09-14 07:39] LABS: ALT 57 U/L (16-63); AST 13 U/L (15-37); Albumin 3.1 g/dL (3.4-5.0); Alkaline Phosphatase 73 U/L (46-116); BUN 14 mg/dL (7-18); Bilirubin, Direct 0.3 mg/dL (0.0-0.2); Bilirubin, Total 1.5 mg/dL (0.2-1.0); C-Reactive Protein 2.15 mg/dL (0.0-0.3); CREATININE 1.2 mg/dL (0.70-1.30); Calcium 7.7 mg/dL (8.5-10.1); Chloride 104 mmol/L (98-107); Glucose 96 mg/dL (74-106); Lipase 60 U/L (73-393); Magnesium 1.9 mg/dL (1.8-2.4); PHOSPHORUS 3.5 mg/dL (2.6-4.7); Potassium 3.4 mmol/L (3.5-5.1); Sodium 139 mmol/L (136-145); Total Protein 5.9 g/dL (6.4-8.2)
[2021-09-14] MEDS: Pantoprazole 40 MG VIAL IVP (07:42)
[2021-09-14] MEDS: Normal Saline Flush 10 ML SYR IVP (07:43)
[2021-09-14 08:20] VITALS: BP 139/89; PULSE 56; RESP 16; TEMP 36.7; O2SAT 96
[2021-09-14] MEDS: MULTIVITAMIN 10 ML, THIAMINE 100 MG, FOLIC ACID 1 MG in DEXTROSE 5%-0.45% SALINE 1,000 ML 42 ML IV (08:32)
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
--- NOTE | 2021-09-14 13:51 | PDOC.CMDIS ---
- If Service Date Differs Date of service: 09/14/21 Time of Service: 13:51 LACE Index Scoring Tool - Questions: Length of Stay (in days): 1 Acuity (Admit via E.D.?): Yes E.D. Visits: 1 - Answers: Total Score: 5 Risk of Readmission: Low Risk Care Management Discharge Reason for Hospitalization: Duondenitis Discharge Plan: Discharge home via private vehicle with family. Take medications as prescribed, eat a bland diet and resume activity as tolerated. Outpatient follow up with surgeon is scheduled for 10/02/21. Patient/Family Education Needs: Review discharge instructions, diet, limitations, medications and plan to follow up with community providers. Review ask me three.
[2021-09-22 16:03] LABS: Helicobacter pylori Ag, Feces Positive (Negative)
== END 2021-09-14 13:10 | disposition home or self-care (01) | DRG 382 ==
LOC: ER 11:48 → MS 12:48
PROVIDERS: Admitting Provider Surgery; Emergency Provider Emergency Medicine; PCP Family Medicine; Visit Provider Surgery
DX: K26.5 Chronic or unspecified duodenal ulcer with perforation (principal); K29.80 Duodenitis without bleeding; F43.10 Post-traumatic stress disorder, unspecified; Z80.0 Family history of malignant neoplasm of digestive organs; K21.9 Gastro-esophageal reflux disease without esophagitis; K76.0 Fatty (change of) liver, not elsewhere classified; I10 Essential (primary) hypertension; Z72.89 Other problems related to lifestyle; L30.9 Dermatitis, unspecified
CPT/HCPCS: 36415; 80048; 80053; 80076; 83690; 87338; 87635; 93005; 96361; 96365; 96367; 96375; 99285; 74176; 74177; 83735; 84100; 84484; 85025; 86140; 93010; 94667; J0131; J2405; J2543; J3490

== ENCOUNTER 2021-09-25 11:45 | Emergency (ER) | payer BC, SELFPAY ==
[2021-09-25 11:50] VITALS: BP 135/96; PULSE 76; RESP 14; TEMP 36.5; O2SAT 97
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
[2021-09-25 12:11] LABS: Abs Immature Grans 0.02 10^3/uL (0.0-0.06); Absolute Basophil Count 0.05 10^3/uL (0.0-0.2); Absolute Monocyte Count 0.64 10^3/uL (0.1-0.8); Absolute Neutrophil Count 3.85 10^3/uL (1.2-6.7); Basophils % 0.8; Eosinophils % 9.4; HCT 45.7 % (40.0-50.0); HGB 15.7 g/dL (13.5-17.5); Immature Grans % 0.3; Lymphocytes % 18.9; MCH 33.3 pg (27.0-33.0); MCHC 34.4 % (32.0-36.0); MPV 9.6 fL (8.0-11.0); Monocytes % 10.1; Neutrophils % 60.5; Nucleated RBC 0 %; Platelet Count 236 10^3/uL (130-400); RBC 4.71 10^6/uL (4.36-5.78); RDW 11.9 % (11.8-14.1); RDW-SD 43.3 fL; WBC 6.36 10^3/uL (4.4-10.8)
[2021-09-25 12:23] LABS: ALT 78 U/L (16-63); AST 25 U/L (15-37); Albumin 4.2 g/dL (3.4-5.0); Alkaline Phosphatase 75 U/L (46-116); Anion Gap 7.6 mmol/L (3-11); BUN 16 mg/dL (7-18); Bilirubin, Total 0.8 mg/dL (0.2-1.0); CO2 27.4 mmol/L (21.0-32.0); CREATININE 1.2 mg/dL (0.70-1.30); Calcium 8.9 mg/dL (8.5-10.1); Chloride 107 mmol/L (98-107); Glucose 103 mg/dL (74-106); Lipase 113 U/L (73-393); Potassium 4.2 mmol/L (3.5-5.1); Sodium 142 mmol/L (136-145); Total Protein 7.8 g/dL (6.4-8.2)
[2021-09-25] MEDS: Pantoprazole 40 MG VIAL IVP (13:33)
[2021-09-25] MEDS: Normal Saline 1,000 ML 1000 ML IV (13:33)
--- NOTE | 2021-09-25 14:00 | DI.CT_ITS ---
Exam(s) CT ABDOMEN PELVIS W EXAM: CT ABDOMEN PELVIS W CLINICAL HISTORY: abd pain, s/p lap grey, ulcer, r/o acute process. TECHNIQUE: Imaging Protocol: Axial computed tomography images with coronal and sagittal reformatted images were created and reviewed CONTRAST MATERIAL: Intravenous: Omnipaque 350 Contrast volume:100 ml Oral: Yes COMPARISON: CT CT ABDOMEN PELVIS W from 07/14/[address] ABDOMEN PELVIS WO from 09/13/[address] ABDOMEN PELVIS W from 09/13/2021 FINDINGS: ABDOMEN: Lung Bases: Normal where visualized. Liver: Normal density. No measurable mass. Gallbladder and biliary tract: Status post cholecystectomy. No residual fluid or stranding in the fa t. No radiodense calculus or dilation. Pancreas: Normal density, no abnormal calcifications or inflammatory process. Spleen: Normal. Kidneys: Normal size, contour and axis. No radiodense stones or obstructive uropathy. No masses seen. Adrenal glands: No masses seen. Abdominal Aorta: Abdominal portion non-dilated. Stomach and duodenum: Resolution of previously noted marked duodenal thickening. A small duodenal di verticulum is again noted. Small bowel: Unremarkable. Colon, descending and sigmoid are nearly free of stool. Stool in the rectum. Mild diverticulosis wi thout evidence of diverticulitis. PELVIS: Bladder: No gross wall thickening. No calculi.No focal mass. Peritoneal cavity: No ascites, collection or mesenteric inflammatory response. Bones: Spine: Mild degenerative changes. Ankylosis is again noted across the SI joints. Reproductive organs: Within normal limits. Lymph nodes: Unremarkable. Impression: No acute abnormality. RADIATION DOSE DELIVERED: 1,125.07mGy.cm Total DLP DATA REPOSITORY: All CT scans at this facility are submitted to the National Radiology Data Registry (NRDR) Dose Index Registry (DIR) with the [employer] ([employer]). RADIATION OPTIMIZATION: All CT scans at this facility use at least one of these dose optimization te chniques: automated exposure control; mA and/or kV adjustment per patient size (includes targeted exa ms where dose is matched to clinical indication); or iterative reconstruction.
[2021-09-25] MEDS: Omnipaque 350 MG/ML 100 ML BTL IJ (14:01)
[2021-09-25] MEDS: Sucralfate 1 GM TAB PO (15:33)
[2021-09-25 15:39] VITALS: BP 128/95; PULSE 67; RESP 17; TEMP 35.5; O2SAT 98
== END 2021-09-25 15:41 | disposition home or self-care (01) ==
PROVIDERS: Emergency Provider Physician Assistant; PCP Family Medicine
DX: R10.9 Unspecified abdominal pain (principal); R19.7 Diarrhea, unspecified
CPT/HCPCS: 36415; 80053; 83690; 96361; 96374; 99285; 74177; 85025; 99284; J3490

== ENCOUNTER 2021-12-11 16:06 | Outpatient (CLI) | payer BC, SELFPAY ==
--- NOTE | 2021-12-11 16:00 | RT.EKG_ITS ---
APPROVED REPORT Exam: Resting ECG Reason for Exam: Chest discomfort at rest Patient Location: O HR:68 bpm ECG Measurements Heart Rate 68 AXIS GA 156 P 49 QRSd 93 QRS -4 QT 407 T 28 QTc 435 Conclusion Sinus rhythm...normal P axis, V-rate 60- 99 Normal Electrocardiogram
== END 2021-12-11 16:07 | disposition home or self-care (01) ==
LOC: DI.CM 16:06
PROVIDERS: PCP Nurse Practitioner Family; Visit Provider Family Medicine
DX: R07.9 Chest pain, unspecified (principal)
CPT/HCPCS: 93010

== ENCOUNTER 2021-12-15 02:54 | Outpatient (CLI) | payer BC, SELFPAY ==
[2021-12-15 15:52] LABS: Abs Immature Grans 0.02 10^3/uL (0.0-0.06); Absolute Basophil Count 0.04 10^3/uL (0.0-0.2); Absolute Eosinophil Count 0.23 10^3/uL (0.0-0.7); Absolute Lymphocyte Count 1.35 10^3/uL (1.2-3.4); Absolute Monocyte Count 0.55 10^3/uL (0.1-0.8); Absolute Neutrophil Count 3.15 10^3/uL (1.2-6.7); Basophils % 0.7; Eosinophils % 4.3; HCT 43.5 % (40.0-50.0); HGB 15.2 g/dL (13.5-17.5); Immature Grans % 0.4; Lymphocytes % 25.3; MCH 33.2 pg (27.0-33.0); MCHC 34.9 % (32.0-36.0); MCV 95 fL (80-95); MPV 9.4 fL (8.0-11.0); Monocytes % 10.3; Platelet Count 167 10^3/uL (130-400); RBC 4.58 10^6/uL (4.36-5.78); RDW 12.5 % (11.8-14.1); RDW-SD 43.4 fL; WBC 5.34 10^3/uL (4.4-10.8)
[2021-12-15 16:00] LABS: ALT 70 U/L (16-63); AST 29 U/L (15-37); Albumin 4.1 g/dL (3.4-5.0); Alkaline Phosphatase 81 U/L (46-116); Anion Gap 9.2 mmol/L (3-11); BUN 13 mg/dL (7-18); Bilirubin, Total 0.6 mg/dL (0.2-1.0); CO2 28.8 mmol/L (21.0-32.0); CREATININE 1.2 mg/dL (0.70-1.30); Calcium 8.7 mg/dL (8.5-10.1); Chloride 101 mmol/L (98-107); Glucose 113 mg/dL (74-106); Lipase 149 U/L (73-393); Potassium 3.6 mmol/L (3.5-5.1); Sodium 139 mmol/L (136-145); Total Protein 7.4 g/dL (6.4-8.2)
[2021-12-15 16:02] LABS: ALT 69 U/L (16-63); AST 29 U/L (15-37); Alkaline Phosphatase 81 U/L (46-116); Bilirubin, Direct 0.1 mg/dL (0.0-0.2); Bilirubin, Total 0.6 mg/dL (0.2-1.0); GGT 60 U/L (15-85); Total Protein 7.4 g/dL (6.4-8.2)
[2021-12-17 12:05] LABS: HBs Antibody, Qual Positive (See Note); HBs Antibody, Quant 17.1 mIU/mL (See Note); Hepatitis B Core Antibody Negative (Negative); Hepatitis B surface Ag Negative (Negative); Hepatitis C Ab w Rflx HCV PCR Negative (Negative)
[2021-12-17 12:06] LABS: Lyme Ab w Rflx to Lyme Confirm Negative (Negative)
[2021-12-18 13:05] LABS: ANA Interpretation Positive (Negative)
[2021-12-18 22:37] LABS: Anaplasma phagocytophilum Negative (Negative); B. miyamotoi PCR Negative (Negative); Babesia divergens/MO-1 Negative (Negative); Babesia duncani Negative (Negative); Babesia microti Negative (Negative); Ehrlichia chaffeensis Negative (Negative); Ehrlichia ewingii/canis Negative (Negative); Ehrlichia muris eauclairensis Negative (Negative)
== END 2021-12-15 02:55 | disposition home or self-care (01) ==
LOC: LBO 02:54
PROVIDERS: Emergency Medicine; PCP Nurse Practitioner Family; Visit Provider Surgery
DX: I10 Essential (primary) hypertension (principal); R10.9 Unspecified abdominal pain; M25.551 Pain in right hip; K21.9 Gastro-esophageal reflux disease without esophagitis; K26.5 Chronic or unspecified duodenal ulcer with perforation; K29.80 Duodenitis without bleeding; K80.20 Calculus of gallbladder without cholecystitis without obstruction; F34.1 Dysthymic disorder; F43.10 Post-traumatic stress disorder, unspecified; W57.XXXA Bitten or stung by nonvenomous insect and other nonvenomous arthropods, initial encounter; T14.8XXA Other injury of unspecified body region, initial encounter; Z90.49 Acquired absence of other specified parts of digestive tract
CPT/HCPCS: 36415; 80053; 80076; 83690; 86704; 86706; 86803; 87340; 87798; 82977; 85025; 86038; 86140; 86618

== ENCOUNTER → 2022-01-01 01:53 | Outpatient (CLI) | payer BC, SELFPAY | PROVIDERS: PCP Nurse Practitioner Family; Visit Provider Surgery ==

== ENCOUNTER → 2022-01-01 01:56 | Outpatient (CLI) | payer BC, SELFPAY | PROVIDERS: PCP Nurse Practitioner Family; Visit Provider Family Medicine ==

== ENCOUNTER 2022-09-17 09:13 | Emergency (ER) | payer BC, SELFPAY ==
[2022-09-17 09:19] VITALS: BP 116/85; PULSE 117; TEMP 36.9; O2SAT 96
--- NOTE | 2022-09-17 09:30 | DI.CT_ITS ---
Exam(s) CT ABDOMEN PELVIS W EXAM: CT ABDOMEN PELVIS W CLINICAL HISTORY: abdominal pain, right sided TECHNIQUE: Imaging Protocol: Axial computed tomography images with coronal and sagittal reformatted images were created and reviewed CONTRAST MATERIAL: Intravenous: Omnipaque 350 Contrast volume:100 mL Oral: No COMPARISON: CT CT ABDOMEN PELVIS W from 09/25/2021 FINDINGS: ABDOMEN: Lung Bases: Normal where visualized. Liver: Fatty infiltration of the liver. No measurable mass. Portal, Superior Mesenteric, and Splenic Veins: Unremarkable. Gallbladder and Biliary Tract: Status post cholecystectomy. No biliary ductal dilatation. Pancreas: Normal density, no abnormal calcifications or inflammatory process. Spleen: Normal. Adrenals: No masses seen. Kidneys: Normal size, contour and axis. No radiodense stones or obstructive uropathy. No masses seen. Abdominal Aorta: Abdominal portion non-dilated. Bowel: There are diverticula seen in the sigmoid colon, but no evidence of acute diverticulitis. The re is no evidence of bowel obstruction or bowel wall thickening. No evidence of appendicitis. Peritoneal Cavity: No ascites, collection or mesenteric inflammatory response. No free air. Lymph Nodes: Within normal limits. Bones: Within normal limits for the patient's age. Soft Tissues: Unremarkable. PELVIS: Bladder: Symmetric distention, no gross wall thickening. Reproductive Organs: Unremarkable as visualized. Lymph Nodes: Within normal limits. Bones: Within normal limits for the patient's age. IMPRESSION: 1. No acute abdominal or pelvic process. 2. Findings were discussed with Dr. Bailey at 11:20 a.m. on 09/17/2022. RADIATION DOSE DELIVERED: 1,427.69mGy.cm Total DLP DATA REPOSITORY: All CT scans at this facility are submitted to the National Radiology Data Registry (NRDR) Dose Index Registry (DIR) with the [employer] ([employer]CR). RADIATION OPTIMIZATION: All CT scans at this facility use at least one of these dose optimization te chniques: automated exposure control; mA and/or kV adjustment per patient size (includes targeted exa ms where dose is matched to clinical indication); or iterative reconstruction.
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
[2022-09-17 09:51] LABS: Abs Immature Grans 0.04 10^3/uL (0.0-0.06); Absolute Basophil Count 0.03 10^3/uL (0.0-0.2); Absolute Eosinophil Count 0.11 10^3/uL (0.0-0.7); Absolute Lymphocyte Count 0.29 10^3/uL (1.2-3.4); Absolute Monocyte Count 0.27 10^3/uL (0.1-0.8); Absolute Neutrophil Count 8.07 10^3/uL (1.2-6.7); Basophils % 0.3; Eosinophils % 1.2; HCT 44.5 % (40.0-50.0); HGB 15.7 g/dL (13.5-17.5); Immature Grans % 0.5; Lymphocytes % 3.3; MCH 34.1 pg (27.0-33.0); MCHC 35.3 % (32.0-36.0); MCV 97 fL (80-95); MPV 9.4 fL (8.0-11.0); Monocytes % 3.1; Neutrophils % 91.6; Platelet Count 193 10^3/uL (130-400); RDW 14.1 % (11.8-14.1); RDW-SD 49.5 fL; WBC 8.81 10^3/uL (4.4-10.8)
[2022-09-17] MEDS: Normal Saline 1,000 ML 1000 ML IV (09:54)
[2022-09-17] MEDS: Ondansetron 4 MG/2 ML VIAL IVP (09:54)
[2022-09-17] MEDS: MORPHine 4 MG/ML SYR 2 MG IVP (09:55)
[2022-09-17 10:04] LABS: Bilirubin Negative (Negative); Blood Negative (Negative); Clarity Clear (Clear); Glucose Negative (Negative); Ketones 15 mg/dL (Negative); Leukocyte Esterase Negative (Negative); Nitrite Negative (Negative); Specific Gravity >= 1.030 (1.005-1.025); Urobilinogen 0.2 mg/dL (Up to 0.2); pH 5.5 (5-8)
[2022-09-17 10:06] LABS: ALT 209 U/L (16-63); AST 108 U/L (15-37); Albumin 4.2 g/dL (3.4-5.0); Alkaline Phosphatase 86 U/L (46-116); Anion Gap 13.9 mmol/L (3-11); BUN 19 mg/dL (7-18); Bilirubin, Total 0.9 mg/dL (0.2-1.0); CO2 20.1 mmol/L (21.0-32.0); CREATININE 1.3 mg/dL (0.70-1.30); Calcium 8.5 mg/dL (8.5-10.1); Chloride 106 mmol/L (98-107); Estimated GFR 66.93 (mL/min/1.73m2); Glucose 124 mg/dL (74-106); Lipase 31 U/L (16-77); Sodium 140 mmol/L (136-145); Total Protein 7.5 g/dL (6.4-8.2)
[2022-09-17 10:24] LABS: Mucus Moderate (Negative)
[2022-09-17 10:25] LABS: Bacteria Rare HPF (Negative); Epithelial Cells Few HPF (Negative); RBC Negative HPF (0-2); WBC Negative HPF (0-5)
[2022-09-17 10:26] LABS: C & S Indicated? No; Casts Negative LPF (Negative); Crystals Negative HPF (Negative)
[2022-09-17] MEDS: Normal Saline - Diluent 50 ML VIAL IJ (10:43)
[2022-09-17] MEDS: Omnipaque 350 MG/ML 500 ML BTL-Imaging package 100 ML IJ (10:43)
[2022-09-17] MEDS: Mylanta Suspension 30 ML CUP PO (11:43)
[2022-09-17] MEDS: Lidocaine 2% Viscous 15 ML CUP PO (11:43)
[2022-09-17] MEDS: Famotidine 20 MG/2 ML VIAL IVP (11:43)
== END 2022-09-17 11:58 | disposition home or self-care (01) ==
PROVIDERS: Emergency Provider Emergency Medicine; PCP Nurse Practitioner Family
DX: R10.9 Unspecified abdominal pain (principal); R11.2 Nausea with vomiting, unspecified; R19.7 Diarrhea, unspecified; R00.0 Tachycardia, unspecified; Z90.49 Acquired absence of other specified parts of digestive tract
CPT/HCPCS: 36415; 80053; 83690; 96361; 96374; 96375; 99285; 74177; 81003; 81015; 85025; 99284; J2270; J2405

== ENCOUNTER 2025-02-27 18:18 | Emergency (ER) | payer BC, SELFPAY ==
[2025-02-27] VITALS (34 sets, daily range): BP systolic 148–188; BP diastolic 78–113; PULSE 40–93; RESP 11–20; TEMP 36.7; O2SAT 93–100
--- NOTE | 2025-02-27 18:15 | RT.EKG_ITS ---
APPROVED REPORT Exam: Resting ECG Reason for Exam: chest pain Patient Location: E HR:86 bpm ECG Measurements Heart Rate 86 AXIS VA 159 P 54 QRSd 90 QRS -40 QT 405 T 32 QTc 483 Conclusion Sinus rhythm...normal P axis, V-rate 60- 99 Multiple ventricular premature complexes...V complexes w/ short R-R intervls Probable left atrial enlargement...P >50mS, <-0.10mV V1 Left axis deviation...QRS axis (-30,-90)
[2025-02-27 18:44] LABS: Abs Immature Grans 0.02 10^3/uL (0.0-0.06); HCT 43.7 % (40.0-50.0); HGB 15.5 g/dL (13.5-17.5); Immature Grans % 0.3 %; MCH 35.4 pg (27.0-33.0); MCHC 35.5 % (32.0-36.0); MCV 100 fL (80-95); MPV 10.0 fL (8.0-11.0); Platelet Count 133 10^3/uL (130-400); RBC 4.38 10^6/uL (4.36-5.78); RDW 12.8 % (11.8-14.1); RDW-SD 47.2 fL; WBC 6.18 10^3/uL (4.4-10.8)
[2025-02-27 18:54] LABS: INR 1.1 (0.9-1.1); Prothrombin Time 11.0 sec (9.1-11.1)
--- NOTE | 2025-02-27 19:00 | DI.CT_ITS ---
Exam(s) CT THORAX ABD/PEL CTA EXAM: CT THORAX ABD/PEL CTA CLINICAL HISTORY: Chest Pain, Chronic Cough, HTN,. TECHNIQUE: Imaging Protocol: Axial CT angiography was performed with multi- slice acquisition and multi-planar and/or 3D reconstructions. Lung Computer Aided Detection (CAD) was utilized. CONTRAST MATERIAL: Intravenous: Omnipaque 350 contrast volume:100 mL Oral: No COMPARISON: CT CHEST FOR PULMONARY EMBOLUS from 10/02/[address] ABDOMEN PELVIS W from 09/17/2022 FINDINGS: CHEST: Tracheobronchial tree: Patent where visualized. There is no evidence of bronchiectasis. Pulmonary parenchyma: No consolidation or dominant measurable mass. No architectural distortion. There is a calcified granuloma in the right upper lobe. Pulmonary Arteries: No evidence of filling defect to suggest pulmonary emboli. Mediastinum and Kyleigh: No dominant adenopathy or fluid collection. The esophagus is unremarkable. Visualized thyroid: Unremarkable. Pleura: No effusion or pneumothorax. Heart: The heart is not dilated. No coronary artery calcifications are seen. No pericardial effusion. Aorta: The ascending thoracic aorta measures 4.0 x 4.1 cm. There is no evidence of dissection. Soft Tissues: Unremarkable. Bones: Within normal limits for the patient's age. ABDOMEN AND PELVIS: Abdomen: Celiac axis/mesenteric arteries: No evidence of occlusion or significant stenosis. Renal Arteries: No evidence of occlusion or significant stenosis. There is a single renal artery perfusing each kidney. Aorta: No evidence of occlusion or significant stenosis. No aneurysm or dissection. Pelvis: Iliac Arteries: No evidence of occlusion or significant stenosis. Common Femoral Arteries: No evidence of occlusion or significant stenosis. ABDOMEN: Liver: There is diffuse decreased attenuation of the liver suggesting fatty infiltration. No measurable mass. Portal, superior mesenteric and splenic veins: Unremarkable. Gallbladder and Biliary Tract: The gallbladder surgically absent. There is no biliary ductal dilatation. Pancreas: Normal density, no abnormal calcifications or inflammatory process. Spleen: Normal. Adrenals: No masses seen. Kidneys: Normal size, contour and axis. There is a 1-2 mm nonobstructing stone in the right kidney. No masses seen. Bowel: There is diverticulosis of the colon without evidence of acute diverticulitis. There is no evidence of bowel obstruction or bowel wall thickening. There is a duodenal diverticulum present. There is no evidence of appendicitis. There is mild thickening of the larsen of the ascending and descen ding colons but this is likely secondary to decreased distension. No significant pericolonic inflammation is seen at this time. Peritoneal Cavity: No ascites, collection or mesenteric inflammatory response. No free air. Lymph Nodes: Within normal limits. Bones: Within normal limits for the patient's age. There is L5 spondylolysis with no spondylolisthesis. Soft Tissues: There are small fat containing bilateral inguinal hernias. PELVIS: Bladder: Symmetric distention, no gross wall thickening. Reproductive Organs: Unremarkable as visualized. Lymph Nodes: Within normal limits. Bones: Within normal limits for the patient's age. IMPRESSION: 1. There is no acute abdominal or pelvic process. 2. There is no evidence of abdominal aortic aneurysm or dissection. 3. There is no evidence of a thoracic aortic dissection or pulmonary embolism. 4. There is no acute pulmonary process. 5. The preliminary [facility] report was reviewed. RADIATION DOSE DELIVERED: 1,096.14mGy.cm Total DLP DATA REPOSITORY: All CT scans at this facility are submitted to the National Radiology Data Registry (NRDR) Dose Index Registry (DIR) with the [employer] (ACR). RADIATION OPTIMIZATION: All CT scans at this facility use at least one of these dose optimization techniques: automated exposure control; mA and/or kV adjustment per patient size (includes targeted exams where dose is matched to clinical indication); or iterative reconstruction.
[2025-02-27 19:06] LABS: ALT 134 U/L (16-63); AST 76 U/L (15-37); Albumin 4.2 g/dL (3.4-5.0); Alkaline Phosphatase 101 U/L (46-116); Anion Gap 7.8 mmol/L (3-11); BUN 9 mg/dL (7-18); Bilirubin, Total 2.0 mg/dL (0.2-1.0); CO2 29.2 mmol/L (21.0-32.0); Calcium 9.5 mg/dL (8.5-10.1); Chloride 102 mmol/L (98-107); Estimated GFR 80.27 (mL/min/1.73m2); Glucose 123 mg/dL (74-106); Lipase 50 U/L (<78); Magnesium 1.3 mg/dL (1.8-2.4); NT-proBNP 198 pg/mL (<300); Potassium 3.6 mmol/L (3.5-5.1); Sodium 139 mmol/L (136-145); Total Protein 7.7 g/dL (6.4-8.2); Troponin I 9 ng/L (<or=76)
[2025-02-27 19:18] LABS: D-Dimer 569 ng/mlFEU (<500)
[2025-02-27 19:21] LABS: COVID-19 PCR Negative (Negative); RSV PCR Negative (Negative)
[2025-02-27] MEDS: Omnipaque 350 MG/ML 100 ML BTL IJ (19:46)
[2025-02-27] MEDS: Normal Saline Flush 10 ML SYR IVP (19:46)
[2025-02-27] MEDS: Normal Saline - Diluent 50 ML VIAL IJ (19:55)
[2025-02-27 20:05] LABS: Troponin I 10 ng/L (<or=76)
[2025-02-27] MEDS: MAGNESIUM SULFATE 1 GM/100 ML BAG IV_INF (20:10)
[2025-02-27] MEDS: Pantoprazole 40 MG VIAL IVP (20:10)
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
--- NOTE | 2025-02-27 20:54 | DI.VRAD_ITS ---
PROCEDURE INFORMATION: Exam: CTA Chest With Contrast CTA Abdomen and Pelvis With Contrast Exam date and time: 02/27/2025 7:45 PM Age: 54 years old Clinical indication: Other: Chest pain, chronic cough, HTN, prior surgery; Surgery date: + months; Surgery type: Cholecystectomy, appendectomy TECHNIQUE: Imaging protocol: Computed tomographic angiography of the chest with contrast. Exam focused on the arteries. Computed tomographic angiography of the abdomen and pelvis with contrast. Exam focused on the arteries. 3D rendering (Not supervised by radiologist): MIP and/or 3D reconstructed images were created by the technologist. Contrast material: OMNI 350; Contrast volume: 100 ml; Contrast route: INTRAVENOUS (IV); COMPARISON: CT ABDOMEN PELVIS W 17/09/2022 10:40 FINDINGS: VASCULATURE: Great vessels off aortic arch: The great vessels appear unremarkable. Pulmonary arteries: The pulmonary arteries are normal in caliber. No evidence of pulmonary emboli. Aorta: The ascending, transverse and descending thoracic aorta appear normal without evidence of dissection, aneurysmal dilatation, pseudoaneurysm or aortic contrast leakage. The aorta and great vessels appear normal. The abdominal aorta is widely patent without evidence of significant occlusive or aneurysmal disease. Celiac trunk and mesenteric arteries: The celiac artery is widely patent without evidence of occlusive or aneurysmal disease. Superior mesenteric artery is widely patent without evidence of occlusive or aneurysmal disease.The inferior mesenteric artery is widely patent without evidence of occlusive or aneurysmal disease. Renal arteries: Single renal artery supplies the right kidney, is widely patent, without evidence of significant occlusive or aneurysmal disease. Single renal artery supplies the left kidney, is widely patent, without evidence of significant occlusive or aneurysmal disease. Right iliac arteries: The right common iliac artery, right internal iliac artery and right external iliac arteries are widely patent without evidence of significant occlusive or aneurysmal disease. Right femoral/popliteal arteries: The right common femoral artery is widely patent without evidence of significant occlusive or aneurysmal disease. The proximal right deep and superficial femoral arteries are widely patent without evidence of significant occlusive or aneurysmal disease. Left iliac arteries: The left common iliac artery, left internal iliac artery and left external iliac arteries are widely patent without evidence of significant occlusive or aneurysmal disease. Left femoral/popliteal arteries: The left common femoral artery is widely patent without evidence of significant occlusive or aneurysmal disease. The proximal left deep and superficial femoral arteries are widely patent without evidence of significant occlusive or aneurysmal disease. CHEST: Lungs: Mild atelectatic changes seen the lung bases bilaterally. There is no evidence of focal pulmonary consolidation. No evidence of pulmonary parenchymal inflammatory changes. There is no evidence of pulmonary masses. Pleural spaces: There is no evidence of pneumothorax. There are no pleural effusions present. Heart: The cardiac structures are normal. Coronary arteries: The coronary arteries appear normal. No evidence of coronary artery atherosclerotic plaque or calcification. Mediastinal space: The mediastinum is normal. ABDOMEN AND PELVIS: Liver: There is a diffuse decrease in hepatic parenchymal density, consistent with moderate fatty infiltration. Gallbladder and biliary ducts: There has been a cholecystectomy. Pancreas: The pancreas is normal. Spleen: The spleen is normal. Adrenal glands: The adrenal glands are normal. Kidneys and ureters: The kidneys are normal. Stomach and bowel: There is no evidence of intestinal obstruction. Mild diverticulosis is present in the sigmoid and descending colon. There is no evidence of diverticulitis. There is decreased caliber to the ascending and descending colon. There is mild diffuse bowel wall thickening involving the ascending and descending colon. Colonic fatty mural change present, most often a normal variation but sometimes seen in patients with chronic inflammatory process such as ulcerative colitis or Crohn's disease.There is minimal bowel wall edema. There is minimal adjacent inflammatory change seen within the peritoneal fat and mesentery. This likely represents mild or early acute colitis. Appendix: There has been an appendectomy. Intraperitoneal space: There is no free intraperitoneal air. There is no evidence of free intraperitoneal or pelvic fluid. Urinary bladder: The bladder is normal. Reproductive: The prostate gland and seminal vesicles are normal. Lymph nodes: There is no evidence of thoracic lymphadenopathy. There is no evidence of retroperitoneal or peritoneal lymphadenopathy. Bones/joints: The thoracic spine, sternum, ribs, and pectoral girdles show no evidence of acute abnormality. 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 The lumbar spine demonstrates mild degenerative changes. Soft tissues: There are no soft tissue masses or fluid collections. IMPRESSION: 1. There is decreased caliber to the ascending and descending colon. There is mild diffuse bowel wall thickening involving the ascending and descending colon. Colonic fatty mural change present, most often a normal variation but sometimes seen in patients with chronic inflammatory process such as ulcerative colitis or Crohn's disease.There is minimal bowel wall edema. There is minimal adjacent inflammatory change seen within the peritoneal fat and mesentery. This likely represents mild or early acute colitis. 2. No evidence of aneurysmal disease, occlusive disease or dissection of the thoracic or abdominal arterial system. No evidence of arterial or veno occlusive disease. No evidence of vasculitis. Dictated and Authenticated by: Allan Maya MD. Orderin Bianca Villafana MD
[2025-02-27] MEDS: Ondansetron O.D.T. 4 MG TABEF, 3 TABS/BTL PO (21:34)
[2025-02-27] MEDS: Sucralfate 1 GM TAB PO (21:34)
== END 2025-02-27 21:47 | disposition home or self-care (01) ==
PROVIDERS: Emergency Provider Registered Nurse Emergency; PCP Nurse Practitioner Family
DX: R07.9 Chest pain, unspecified; K21.9 Gastro-esophageal reflux disease without esophagitis; I10 Essential (primary) hypertension; K76.0 Fatty (change of) liver, not elsewhere classified
CPT/HCPCS: 99284; 99285; 96374; 36415; 71275; 80053; 83690; 87637; 93005; 74174; 83735; 83880; 84484; 85025; 85379; 85610; 93010; J2470; J3475; J3490